=== PATIENT | female | born 1985 | race Caucasian/White ===

== ENCOUNTER 2024-12-24 08:32 | Emergency (ER) | payer SELFPAY ==
[2024-12-24] VITALS (7 sets, daily range): BP systolic 114–145; BP diastolic 66–90; PULSE 46–68; RESP 12–19; TEMP 36.6–36.9; O2SAT 97–100; BMI 31.8
--- NOTE | 2024-12-24 08:37 | EKG_ITS ---
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
--- NOTE | 2024-12-24 08:54 | PD.EDADULT ---
ED General RME/HPI General Chief complaint: Chest Pain Stated complaint: PULSE DROPS TO 40'S, SHAKY, CHEST HEAVINESS Time Seen by Provider: 12/24/24 08:39 Arrival date/time: 12/24/24 08:32 RME / HPI RME / HPI narrative: Melissa is a 39 y/o female with PMHx of obesity, HLD and bigeminy who comes in for an evaluation of chest pressure and palpitations started this morning, with associated pain in left upper back. Patient reports that she has had similar symptoms to these before, however is unsure why this happens. She says that she has got an a heart rate as high as 160 before, and was referred to a residential case manager in which she had a Holter monitor done as well as a stress test which was unremarkable. She was told that she has bigeminy palpitations and was started on metoprolol XL 25 mg. She said her residential case manager is Dr. Rojo in [place]. She reports new stressors in her life including her mom being in the hospital currently. She also says that she is having some congestion which she took Tylenol cold and flu for. She denies any headache, numbness, weakness, vomiting, nausea, any diarrhea. She denies any recent travel. 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 She says uses occasional THC Gummies for sleep, does not drink, and vapes nicotine. She reports minimal acid reflux symptoms that occur rarely for her. She says that she has been told that some of her chest pain in the past has been related to anxiety. She says that her dad of heart problems at 55 as well as her uncle. No other complaints at this time. Related Data Allergies Allergy/AdvReac Type Severity Reaction Status Date / Time codeine AdvReac Severe NAUSEA AND Verified 12/24/24 08:35 VOMITING PER NURSE Review of Systems Review of Systems Narrative Review of Systems: 12 point ROS reviewed and is otherwise negative unless stated directly in the HPI ED Exam Narrative Physical exam: General: AAOx3, NAD, obese HEENT: Moist mucous membranes, conjunctiva clear, EOMI, PERRLA, Cardiovascular: S1, S2, radial pulses +2 bilat, bradycardic, no reproducible chest pain Pulmonary: CTAB bilat no cough, no wheezing GI: No tenderness to light or deep palpitation, no guarding, rigidity, rebound tenderness or distension Extremities: No presence of trace or pitting edema in lower extremities bilaterally, dorsalis pedis pulses +2 bilaterally, some tattoos on legs Neuro: AAOx3, no focal motor or sensory deficits in the UE or LE bilat Psych: Good judgement, thought and behavior Course Quality Measures none Orders Category Date Time Status Bedside COVID-19 Antigen Test NOW Care 12/24/24 08:57 Active Consult Store Coordinator NOW Care 12/24/24 11:59 Active EKG (ED ONLY) *Do not use* NOW Care 12/24/24 08:37 Completed EKG (ED ONLY) *Do not use* NOW Care 12/24/24 11:44 Completed EKG (ED Only) Stat Exams 12/24/24 08:37 Draft EKG (ED Only) Stat Exams 12/24/24 11:44 Draft XR chest 1V portable Stat Exams 12/24/24 09:19 Completed CBC Stat Lab 12/24/24 09:25 Completed CMP [Comprehensive Metabolic Panel] Stat Lab 12/24/24 09:25 Completed Drug Screen,Urine Stat Lab 12/24/24 10:40 Completed Free T4 (Free Thyroxine) Stat Lab 12/24/24 09:25 Completed Influenza A & B Rapid Panel Stat Lab 12/24/24 11:20 Completed Mag [Magnesium] Stat Lab 12/24/24 09:25 Completed Thyroid Stimulating Hormone Stat Lab 12/24/24 09:25 Completed Troponin I Stat Lab 12/24/24 09:25 Completed Troponin I Stat Lab 12/24/24 12:22 Completed Urinalysis, C/S if Indicated Stat Lab 12/24/24 10:40 Completed Vital Signs Vital signs: Vital Signs Temperature 98.4 F 12/24/24 08:39 Pulse Rate 59 L 12/24/24 08:39 Respiratory Rate 16 12/24/24 08:39 Blood Pressure 145/90 H 12/24/24 08:39 Pulse Oximetry (%) 100 12/24/24 08:39 Oxygen Delivery Method Room Air 12/24/24 08:39 Discharge Plan Plan Patient Disposition: HOME (Self Care) Prescriptions/Referrals Referrals: No Primary/Family,Physician [Primary Care Provider] - In 1 week Problem List Clinical Impression: Bradycardia, drug induced Patient/Caregiver Discharge Instructions Education Materials: Understanding Bradycardia, ED Bradycardia Additional Instructions: Discharge instructions Follow-up with your PCP within 1 week Stop taking your Metoprolol due to your low HR Follow up with your PCP and have them refer you to a residential case manager We recommend you to follow up in the ED within the next 1-2 days if you cannot see a private doctor. Return to ED if your symptoms worsen or return Print Language: Polish Stand Alone Forms: Katheryn Award Info., Patient Portal Info Letter MDM Narrative MDM hospital course (for use when minimal MDM required): 0857: Basic labs including troponin biomarker, EKG. Will swab for COVID and flu 1024: Labs reviewed, will order additional T4. CXR unremarkable. Troponin negative x1, COVID and Flu negative. 1300: Troponin negative x2, second EKG shows sinus bradycardia again. Spoke with residential case manager, Dr. Hwang, recommends to stop BB. Pt to follow up in ER within the next two days. Pt refuses breathing tx at this time as it could potentially increase HR, however refuses at this time. Due to no AV block visualized on EKGs, there is no intervention indicated for pacemaker placement or transcutaneous pacing at this time. Pt's symptoms have resolved at this time. Pt is medically cleared for discharge. EKG Interpretation EKG #1: EKG Interpretation: EKG shows QT of 373, no ST changes, sinus bradycardia Diagnosis Diagnoses ruled out and/or further discussions: Drug induced sinus bradycardia, Costochondritis, anxiety, GERD, ACS, arrhythmia
--- NOTE | 2024-12-24 09:19 | XR_ITS ---
EXAMINATION: PA chest single view TECHNIQUE: Upright PA chest single view Date and time: December 24, 2024, 0928 hours INDICATIONS: Chest pain today FINDINGS: Normal heart size. Lungs are clear. The osseous structures are intact. IMPRESSION: No active disease
[2024-12-24 09:50] LABS: Basophils # (Auto) 0.1 Thou/mm3 (0.0-0.2); Basophils % (Auto) 1 % (0-2.5); Eosinophils # (Auto) 0.2 Thou/mm3 (0.0-0.5); Eosinophils % (Auto) 2 % (0-10); Hematocrit 39.5 % (36.0-46.0); Hemoglobin 12.8 g/dL (12.0-16.0); Immature Granulocytes Auto 0.01 Thou/mm3 (0.00-0.00); Lymphocytes # (Auto) 2.3 Thou/mm3 (1.0-4.8); Lymphocytes % (Auto) 33 % (10-50); Mean Corpuscular HGB Conc 32.4 g/dl (31.0-37.0); Mean Corpuscular Hemoglobin 28.2 pg (25.0-35.0); Mean Corpuscular Volume 87 fL (80-100); Monocytes # (Auto) 0.5 Thou/mm3 (0.0-0.8); Monocytes % (Auto) 7 % (0-12); Neutrophils # (Auto) 4.0 Thou/mm3 (1.8-7.7); Neutrophils % (Auto) 57 % (37-80); Nucleated Red Blood Cell # 0.00 Thou/mm3 (0.00-0.00); Nucleated Red Blood Cell % 0 /100 WBC (0); Platelet Count 273 Thou/mm3 (140-440); RDW Standard Deviation 46.5 fL (36.4-46.3); Red Blood Count 4.54 Miln/mm3 (4.00-5.20); White Blood Count 6.9 Thou/mm3 (3.6-11.0)
[2024-12-24 10:15] LABS: Alanine Aminotransferase 35 U/L (10-49); Albumin, Serum 4.9 gm/dL (3.5-5.0); Albumin/Globulin Ratio 1.8 (1.2-2.2); Alkaline Phosphatase 52 U/L (46-116); Anion Gap 8 (7-16); Aspartate Amino Transferase 24 U/L (0-34); BUN/Creatinine Ratio 17 Ratio (12-20); Bilirubin,Total 0.5 mg/dL (0.3-1.2); Blood Urea Nitrogen 10 mg/dL (9-23); Calcium 9.9 mg/dL (8.3-10.6); Calcium (Corrected) 9.9 mg/dL (8.5-10.1); Carbon Dioxide 27.1 mMol/L (20.0-31.0); Chloride 105 mMol/L (98-107); Creatinine (Component) 0.6 mg/dL (0.6-1.3); Estimated Creatinine Clearance 153.7 mL/min (>60); Globulin 2.8 gm/dL (2.3-3.5); Glucose 92 mg/dL (74-106); Magnesium 1.8 mg/dL (1.6-2.6); Osmolality,Calculated 278 (275-295); Potassium 4.1 mMol/L (3.4-5.1); Sodium 140 mMol/L (136-145); Thyroid Stimulating Hormone 0.99 uIU/mL (0.55-4.78); Total Protein 7.7 gm/dL (5.7-8.2); Troponin I < 0.002 ng/mL (0.0-0.045); eGFR > 60 See Note
--- NOTE | 2024-12-24 10:51 | PC.NURSE ---
PT HERE WITH C/O LOW HEARTRATE. STATES ON METROPROLOL FOR PALPITATIONS AND BIGEMMINY BUT HAS NEVER HAD LOW HEAR RATE. STATES WAS SHAKEY AND RIGHT SIDE CHEST TIGHT THIS MORNING BUT THOSE SENSATIONS GONE NOW
[2024-12-24 11:01] LABS: Collection Type, Urine Clean Catch
[2024-12-24 11:12] LABS: Free T4 (Free Thyroxine) 0.92 ng/dL (0.89-1.76)
[2024-12-24 11:13] LABS: Amphetamine/Methamp Scrn,U Negative (Negative); Bacteria,Urine 2+; Barbiturate Screen,Urine Negative (Negative); Benzodiazepines Screen,Urine Negative (Negative); Benzoylecgonine Screen, Ur Negative (Negative); Bilirubin,Urine Negative (Negative); Blood,Urine Negative (Negative); Color,Urine Lt-Yellow (Lt Yel-Yel); Culture Indicated,Urine Contaminated; Fentanyl Screen,Urine Negative (Negative); Glucose, Urine Negative (Negative); Ketones,Urine Negative (Negative); Leukocyte Esterase,Urine Negative (Negative); Nitrite,Urine Negative (Negative); Opiate Screen,Urine Negative (Negative); PH,Urine 5.5 (5.0-7.0); Protein,Urine Negative (Neg - Trace); RBC,Urine 2 /hpf (0-3); Specific Gravity,Urine 1.018 (1.001-1.035); Squamous Epithelial Cell,Urine 12 /hpf (0-5); THC Screen,Urine Positive (Negative); Urobilinogen,Urine Negative mg/dL (0.0-1.0); WBC,Urine 3 /hpf (0-5)
[2024-12-24 11:15] LABS: Clarity,Urine Hazy (Clear/Hazy)
--- NOTE | 2024-12-24 11:44 | EKG_ITS ---
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
[2024-12-24 11:48] LABS: Influenza A Ag Negative; Influenza B Ag Negative
--- NOTE | 2024-12-24 12:24 | PC.CC ---
1224-Per ER providers request, ASW provided insurance information to pt, such as Affordable Care Act insurance, connection to [facility] sliding scale and medi-eliseo information. Pt states she used to be on the Affordable Care Act insurance but prices got too expensive so she got off it if. However, pt reports she is willing to go back on int again and stated, I guess my kids won't eat. ASW provided pt with the [facility] community resource guide which also has information to food links/pantry.
[2024-12-24 12:51] LABS: Troponin I < 0.002 ng/mL (0.0-0.045)
== END 2024-12-24 14:08 | disposition home or self-care (01) ==
DX: R00.1 Bradycardia, unspecified (principal); E78.5 Hyperlipidemia, unspecified; F41.9 Anxiety disorder, unspecified; K21.9 Gastro-esophageal reflux disease without esophagitis
CPT/HCPCS: 36415; 71045; 80053; 80307; 81001; 83735; 84439; 84443; 84484; 85025; 87502; 87811; 93005; 99284

== ENCOUNTER 2024-12-25 20:11 | Emergency (ER) | payer SELFPAY ==
[2024-12-25 20:12] VITALS: BMI 31.8
--- NOTE | 2024-12-25 20:15 | EKG_ITS ---
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
[2024-12-25 20:18] VITALS: BP 134/82; PULSE 102; RESP 20; TEMP 36.5; O2SAT 99
--- NOTE | 2024-12-25 20:21 | XR_ITS ---
EXAMINATION: PA chest single view TECHNIQUE: Upright PA chest single view Date and time: December 25, 2024, 2111 hours, comparison December 24, 2024 INDICATIONS: Upper chest pain today FINDINGS: Normal heart size The lungs are clear. The osseous structures are intact IMPRESSION: No active disease
--- NOTE | 2024-12-25 20:22 | PD.EDRME ---
Rapid Medical Screening Exam RME Arrival date/time: 12/25/24 20:11 This is a case of 39-year-old female with history of bigeminy palpitation and sinus bradycardia came in in the emergency room due to chest pain and palpitation with shortness of breath patient states that she was here yesterday for sinus bradycardia patient is taking metoprolol worsening of the symptoms this patient decided to start consult here in the emergency room Chief Complaint: Arrhythmia/Palpitations Time Seen by Provider: 12/25/24 20:21 Vital signs: Vital Signs Temperature 97.7 F 12/25/24 20:18 Pulse Rate 102 H 12/25/24 20:18 Respiratory Rate 20 12/25/24 20:18 Blood Pressure 134/82 H 12/25/24 20:18 Pulse Oximetry (%) 99 12/25/24 20:18 Oxygen Delivery Method Room Air 12/25/24 20:18
[2024-12-25 20:52] LABS: Basophils # (Auto) 0.1 Thou/mm3 (0.0-0.2); Basophils % (Auto) 1 % (0-2.5); Eosinophils # (Auto) 0.4 Thou/mm3 (0.0-0.5); Eosinophils % (Auto) 3 % (0-10); Hematocrit 41.0 % (36.0-46.0); Hemoglobin 13.2 g/dL (12.0-16.0); Immature Granulocytes Auto 0.04 Thou/mm3 (0.00-0.00); Lymphocytes # (Auto) 3.7 Thou/mm3 (1.0-4.8); Lymphocytes % (Auto) 35 % (10-50); Mean Corpuscular HGB Conc 32.2 g/dl (31.0-37.0); Mean Corpuscular Hemoglobin 27.8 pg (25.0-35.0); Mean Corpuscular Volume 86 fL (80-100); Monocytes # (Auto) 0.6 Thou/mm3 (0.0-0.8); Monocytes % (Auto) 6 % (0-12); Neutrophils # (Auto) 5.7 Thou/mm3 (1.8-7.7); Neutrophils % (Auto) 54 % (37-80); Nucleated Red Blood Cell # 0.00 Thou/mm3 (0.00-0.00); Nucleated Red Blood Cell % 0 /100 WBC (0); Platelet Count 299 Thou/mm3 (140-440); RDW Standard Deviation 46.5 fL (36.4-46.3); Red Blood Count 4.75 Miln/mm3 (4.00-5.20); White Blood Count 10.6 Thou/mm3 (3.6-11.0)
[2024-12-25 21:06] LABS: B-Type Natriuretic Peptide 22 pg/mL (0-100)
[2024-12-25 21:07] LABS: Collection Type, Urine Clean Catch
[2024-12-25 21:11] LABS: Alanine Aminotransferase 22 U/L (10-49); Albumin, Serum 4.7 gm/dL (3.5-5.0); Albumin/Globulin Ratio 2.0 (1.2-2.2); Alkaline Phosphatase 58 U/L (46-116); Anion Gap 12 (7-16); Aspartate Amino Transferase 15 U/L (0-34); BUN/Creatinine Ratio 16 Ratio (12-20); Bilirubin,Total 0.4 mg/dL (0.3-1.2); Blood Urea Nitrogen 13 mg/dL (9-23); Calcium 9.2 mg/dL (8.3-10.6); Calcium (Corrected) 9.2 mg/dL (8.5-10.1); Carbon Dioxide 27.0 mMol/L (20.0-31.0); Chloride 103 mMol/L (98-107); Creatinine (Component) 0.8 mg/dL (0.6-1.3); Estimated Creatinine Clearance 115.3 mL/min (>60); Globulin 2.4 gm/dL (2.3-3.5); Glucose 125 mg/dL (74-106); Osmolality,Calculated 284 (275-295); Potassium 3.4 mMol/L (3.4-5.1); Sodium 142 mMol/L (136-145); Thyroid Stimulating Hormone 1.99 uIU/mL (0.55-4.78); Total Protein 7.1 gm/dL (5.7-8.2); Troponin I < 0.002 ng/mL (0.0-0.045); eGFR > 60 See Note
[2024-12-25 21:19] LABS: D-Dimer < 250 ng/mL (<600)
[2024-12-25 21:36] LABS: HCG Qualitative,Urine Negative
[2024-12-25 21:39] LABS: Bacteria,Urine Rare; Bilirubin,Urine Negative (Negative); Blood,Urine 1+ (Negative); Clarity,Urine Turbid (Clear/Hazy); Color,Urine Yellow (Lt Yel-Yel); Glucose, Urine Negative (Negative); Ketones,Urine Negative (Negative); Leukocyte Esterase,Urine Negative (Negative); Nitrite,Urine Negative (Negative); PH,Urine 5.5 (5.0-7.0); Protein,Urine Trace (Neg - Trace); RBC,Urine 13 /hpf (0-3); Specific Gravity,Urine 1.032 (1.001-1.035); Squamous Epithelial Cell,Urine 8 /hpf (0-5); Urobilinogen,Urine 2.0 mg/dL (0.0-1.0); WBC,Urine 1 /hpf (0-5)
[2024-12-25 22:43] VITALS: BP 134/88; PULSE 76; RESP 17; TEMP 37; O2SAT 100
--- NOTE | 2024-12-25 23:23 | PD.EDARRY ---
ED Arrhythmia Palp. RME/HPI General Chief Complaint: Arrhythmia/Palpitations Stated Complaint: PALPITATIONS WITH JAW AND BACK PAIN, SWEATY Time Seen by Provider: 12/25/24 20:21 Arrival date/time: 12/25/24 20:11 RME / HPI RME / HPI narrative: 12/25/24 20:11 This is a case of 39-year-old female with history of bigeminy palpitation and sinus bradycardia came in in the emergency room due to chest pain and palpitation with shortness of breath patient states that she was here yesterday for sinus bradycardia patient is taking metoprolol worsening of the symptoms this patient decided to start consult here in the emergency room DR. RAMSEY MAIN ED EVALUATION: Patient with Hx of obesity/ventricular bigeminy with Hx of tachy arrhythmia followed by bookie recently started on Metoprolol XL seen 1 day TOOL LIAISON for non-specific chest pain and found to be bradycardic. Patient instructed to discontinue Metoprolol due to drug-induced bradycardia and return to ED as instructed for re-evaluation. PMH: Obesity, Bigeminy PSH: Non-contributory Allergies: Codeine Social: Positive Marijuana, No alcohol, No illicit drug use Related Data Allergies Allergy/AdvReac Type Severity Reaction Status Date / Time codeine AdvReac Severe NAUSEA AND Verified 12/25/24 20:12 VOMITING PER NURSE Review of Systems Review of Systems Systems Reviewed: All systems reviewed, normal except as documented Past Medical History Past Medical History CARDIAC: Positive Cardiac Disorders (IRREG HEART BEAT, BIGEMMINY, JOHN) GASTROINTESTINAL: Positive Obesity Social History SMOKING STATUS: Current every day smoker SUBSTANCE USE: marijuana ED Exam Narrative Physical exam: GEN. APPEARANCE: The patient is alert awake oriented X-3 in distress, lying down comfortably, does not look ill/toxic. Patient has good eye contact. Patient is cooperative. VITALS: All vitals were reviewed and the pulse ox is []% on room air which is normal according to my interpretation. HEENT: Normocephalic, atraumatic. Pupils are equal and reactive. Oral mucosa is moist. Patent Nares NECK: Supple, nontender, no thyromegaly, no meningismus, no JVD, no step offs CHEST: Symmetrical, atraumatic, and with equal expansion , Nontender on palpation no deformity and no crepitus. CARDIOVASCULAR: Heart regular rhythm no murmur or gallop rub or extra beats. LUNGS: Clear to auscultation bilaterally with symmetrical chest rise. No laboring tachypnea or wheezing. No intercostal subcostal retraction. No rales and no rhonchi. ABDOMEN: Soft, flat, nontender to palpation, no guarding or rebound tenderness. There are no abnormal masses palpated. Active and normal bowel sounds. EXTREMITIES: Nontender. No edema. No cyanosis. Patient is able to move all 4 extremities well, with full ROM and good CSM. SKIN: Warm and dry, no jaundice or rashes noted. MUSCULOSKELETAL: No lubar or midline bony tenderness. There is no CVA tenderness. No paraspinal muscle spasm or tenderness. NEURO: Patient is HENSLEY x 4, Cranial nerves II through XII grossly intact. There is no focal neurologic deficits noted. GCS is 15, PNS and CLEANER WALL appear grossly intact. PSYCHIATRIC: Patient is in normal mood and affect, cooperative, no SI or HI or hallucinations. Course Quality Measures none Orders Category Date Time Status EKG (ED ONLY) *Do not use* NOW Care 12/25/24 20:15 Completed EKG (ED Only) Stat Exams 12/25/24 20:15 Draft XR chest 1V portable Stat Exams 12/25/24 20:21 Completed BNP [B-Type Natriuretic Peptide] Stat Lab 12/25/24 20:30 Completed CBC Stat Lab 12/25/24 20:30 Completed Comprehensive Metabolic Panel Stat Lab 12/25/24 20:30 Completed D-Dimer Stat Lab 12/25/24 20:30 Completed HCG Qualitative,Urine Stat Lab 12/25/24 20:52 Completed TSH [Thyroid Stimulating Hormone] Stat Lab 12/25/24 20:30 Completed Troponin I Stat Lab 12/25/24 20:30 Completed Urinalysis Stat Lab 12/25/24 20:52 Completed Vital Signs Vital signs: Vital Signs Temperature 97.7 F 12/25/24 20:18 Pulse Rate 102 H 12/25/24 20:18 Respiratory Rate 20 12/25/24 20:18 Blood Pressure 134/82 H 12/25/24 20:18 Pulse Oximetry (%) 99 12/25/24 20:18 Oxygen Delivery Method Room Air 12/25/24 20:18 Arrhythmia/Palpitations MDM Narrative MDM Narrative:: Scribe Attestation: I, Payton Aviles, am scribing for and in the presence of Dr. Ramsey. Provider Notation: Although this document has been carefully reviewed, there may still be some phonetic and other typographical errors. These errors are purely grammatical due to imperfections in the software program and should not be construed in any way to compromise the substance of the patient's medical care during this visit. Please see PE findings. Patient data External records reviewed:: [facility] previous records (Reviewed prior ED records from 12/24/24. Patient was seen for Bradycardia, drug induced.) Clinical information provided by:: patient Social determinants that could affect healthcare access:: substance use (Marijuana) Patient has the following chronic illnesses:: Bigeminy How is presenting disease/condition affected by chronic disease/condition?: exacerbated by Evaluation data The following diagnostics were reviewed and interpreted by me:: radiology exam(s) and EKG tracing(s) (EKG demonstrates sinus rhythm with ventricular rate of 84 bpm, no acute ST segment changes, no ventricular ectopy, axis normal, low-voltage in precordial leads, per my interpretation.) Lab and/or radiology exams considered but not ordered:: None Interpretation Summary: RADIOLOGY Chest X-Ray: FINDINGS: Normal heart size The lungs are clear. The osseous structures are intact IMPRESSION: No active disease Medications / Prescriptions Medications or Prescriptions considered but not ordered:: None Medication administrations:: See above if any Diagnosis Differential diagnosis arrhythmia/palpitations: palpitations, artial fibrillation, ventricular premature beats and other (Bigeminy) Discharge Plan Plan Patient Disposition: Elopement Prescriptions/Referrals Referrals: No Primary/Family,Physician [Primary Care Provider] - In 1 week Patient/Caregiver Discharge Instructions Print Language: Bulgarian
--- NOTE | 2024-12-26 00:07 | PC.NURSE ---
CALLED PATIENT IN THE LOBBY AND OUTSIDE, NO ANSWER.
--- NOTE | 2024-12-26 00:22 | PC.NURSE ---
CALLED PATIENT IN THE LOBBY AND OUTSIDE, NO ANSWER RECEIVED.
--- NOTE | 2024-12-26 00:28 | PC.NURSE ---
CALLED PATIENT IN THE LOBBY AND OUTSIDE, NO ANSWER RECEIVED.
== END 2024-12-26 00:28 | disposition left against medical advice (07) ==
LOC: SERX 22:19
PROVIDERS: Nurse Practitioner Family; Emergency Provider Emergency Medicine
DX: Z53.21 Procedure and treatment not carried out due to patient leaving prior to being seen by health care provider (principal)
CPT/HCPCS: 36415; 71045; 80053; 81001; 81025; 83880; 84443; 84484; 85025; 85379; 93005; 99283